=== PATIENT | male | born 1985 | race American Indian/Alaskan Native ===

== ENCOUNTER 2021-06-10 14:45 | Emergency (ER) | payer BC ==
[~2021-06-10] VITALS: Ht 180.3 cm; Wt 96.2 kg
[2021-06-10 14:48] VITALS: BP 159/85; TEMP 97.2
[2021-06-10 15:26] LABS: POTASSIUM 3.7 mmol/L (3.6-5.2)
[2021-06-10 15:28] LABS: PLATELET COUNT 206 K/uL (142-355)
== END 2021-06-10 16:07 | disposition home or self-care (01) ==
LOC: ED 14:45
PROVIDERS: Emergency Medicine Emergency Medical Services
DX: M79.18 Myalgia, other site (principal)
CPT/HCPCS: 80053; 85027; 86140; 99283

== ENCOUNTER 2023-07-17 08:22 | Emergency (ER) | payer BC ==
[~2023-07-17] VITALS: Ht 180.3 cm; Wt 95.3 kg
[2023-07-17 08:26] VITALS: BP 156/99; TEMP 98.2
== END 2023-07-17 09:16 | disposition home or self-care (01) ==
LOC: ED 08:22
DX: S76.312A Strain of muscle, fascia and tendon of the posterior muscle group at thigh level, left thigh, initial encounter (principal); X50.0XXA Overexertion from strenuous movement or load, initial encounter; Y93.02 Activity, running; Y92.009 Unspecified place in unspecified non-institutional (private) residence as the place of occurrence of the external cause; Y99.9 Unspecified external cause status; I10 Essential (primary) hypertension
CPT/HCPCS: 99282